=== PATIENT | female | born 1955 | race American Indian/Alaskan Native ===

== ENCOUNTER 2017-02-10 10:53 | Outpatient (CLI) | payer BC ==
--- NOTE | 2017-02-10 14:22 | Mammography Report ---
BILATERAL MAMMOGRAM: FINDINGS: There are scattered fibroglandular densities (approximately 25%-50% glandular). No mass, distortion, suspicious calcification, or skin change is seen. No significant change when compared to prior exams in 2015. CAD was utilized. IMPRESSION: Negative mammogram. There is no mammographic evidence of malignancy. RECOMMENDATION: Follow-up per ACS guidelines. BI-RADS CATEGORY: 1 = Negative ACR BI-RADS MAMMOGRAPHIC CODES: 0 = Needs additional imaging evaluation; 1 = Negative; 2 = Benign; 3 = Probably benign; 4 = Suspicious; 5 = Malignant; 6 = Known biopsy-proven malignancy COMMENT: 1. Dense breast tissue, i.e., adenosis, fibrocystic changes, etc., may obscure an underlying neoplasm. 2. Approximately 10% of cancers are not detected with mammography. 3. A negative mammography report should not delay biopsy if a clinically suspicious mass is present. COMMENT: Patient follow-up letters are generated in [employer].
== END 2017-02-10 10:54 | disposition home or self-care (01) ==
LOC: MAMMO 10:53
PROVIDERS: ATTEND Obstetrics & Gynecology
DX: Z12.31 Encounter for screening mammogram for malignant neoplasm of breast (principal)
CPT/HCPCS: 77067; G0202

== ENCOUNTER 2018-05-05 06:00 | Day surgery (SDC) | payer BC ==
[2018-05-05] MEDS ORDERED: TETRACAINE 0.5% OD PRN (06:22)
[2018-05-05] MEDS: AK-Dilate OD SCH ×3 (06:53→07:05)
[2018-05-05] MEDS: MYDRIACYL OD SCH ×3 (06:53→07:05)
[2018-05-05] MEDS: VIGAMOX OD SCH ×3 (06:54→07:05)
[2018-05-05] MEDS ORDERED: VERSED ONE (07:26)
--- NOTE | 2018-05-05 07:47 | Anesthesia Day of Surgery ---
Anesthesia Day of Surgery - Day of Surgery Patient Examined: Yes Patient H&P Reviewed: Yes Patient is NPO: Yes
--- NOTE | 2018-05-05 07:48 | Anesthesia Consultation ---
Anesthesia Consult and Med Hx Date of service: 05/05/18 - Airway Anesthetic Teeth Evaluation: Good ROM Head & Neck: Adequate Mental/Hyoid Distance: Adequate Mallampati Class: Class I Intubation Access Assessment: Probably Good - Pulmonary Exam CTA: Yes - Cardiac Exam Cardiac Exam: RRR - Pre-Operative Health Status ASA Pre-Surgery Classification: ASA2 Proposed Anesthetic Plan: MAC - Cardiovascular System Hx Hypertension: Yes (mitral valve prolapse) Hx Coronary Artery Disease: No
[2018-05-05] MEDS ORDERED: PRED FORTE 1% ONE (08:06)
[2018-05-05] MEDS ORDERED: DIAMOX PO ONE (08:27)
[2018-05-05] MEDS ORDERED: PRED FORTE 1% OD SCH (08:35)
--- NOTE | 2018-05-05 11:32 | Operative Report ---
Operative Report Operative Report: PATIENT'S NAME: DATE OF : DATE OF SURGERY: 05/05/2018 PREOPERATIVE DIAGNOSIS: Cataract right eye POSTOPERATIVE DIAGNOSIS: Same OPERATIVE PROCEDURE: Phacoemulsification with intraocular lens implantation, right eye SURGEON: Monae Goff M.D. FLEXIBLE NANNY SURGEON: Moisés Lens: SA60WF 21.0 D ANESTHESIA: Monitored anesthesia care in combination with topical and intracameral anesthesia because of the established specific risk of reflux, arrhythmias, or anxiety attacks associated with ocular manipulation, as well as the difficulty of the bridge operator slip to manage such potentially catastrophic events while simultaneously attempting to complete the surgical procedure and was deemed necessary for the patient's safety to have an Commercial Finance Analyst present during the procedure whenever possible. An Commercial Finance Analyst was utilized to regulate the intravenous sedation of the patient so the patient was cooperative yet not asleep in order for the patient to successfully maintain fixation of the eye on the operating light of the microscope. COMPLICATIONS: No surgical complications No blood loss. ALLERGIES: Amoxicillin PROGNOSIS: Excellent INDICATIONS FOR SURGERY: The patient is undergoing surgery in the hopes of eliminating or improving these visual difficulties. PROCEDURE: After arriving at the surgery center, the patient was given topical anesthetic and dilating drops, as noted in the record. The patient was then taken into the operating room and given more anesthetic drops. The eyelids , lashes, and lid margins were scrubbed with Betadine solution, and the patient was draped. The Nurse Commercial Finance Analyst administered IV sedation and monitored the patient during the procedure. The eye was then fixated with a 0.12, and a stab incision was made in the peripheral clear cornea into the anterior chamber. This was made on my left side. Viscoelastic was next used to fill the anterior chamber. The eye was once again fixated with the 0.12 forceps and a keratome was used make an incision in clear cornea peripherally on my right hand side temporally. The capsule forceps were used to open the central anterior capsule and then make a continuous round capsulotomy. Hydrodissection was carried out utilizing a cannula and balanced salt solution to delineate the cortical material from the capsule and the nucleus from the cortical material. The phaco tip was introduced into the eye and used to remove the anterior cortical material in the area of the capsulotomy. Then the phaco tip was buried into the nucleus, and a chopping instrument was introduced into the eye and used to provide countertraction in the nucleus between this instrument and the phaco tip fracturing the nucleus. This procedure was repeated multiple times, providing multiple small segments of the lens, and then the phaco tip was used to remove each of these segments. An I/A tip was then used to remove the remaining cortex. The anterior chamber was refilled with viscoelastic. An one-piece, acrylic intraocular lens was then placed into an inserting cartridge. The tip of the inserting cartridge was introduced into the keratome incision and into the anterior chamber. The implant was gently advanced through the cartridge and into the eye, where it unfolded, and both haptics were placed in the capsular bag, where it centered nicely and appeared to be well fixated. After placement of the intraocular lens, the I~and~A handpiece was placed back into the eye and used to remove the viscoelastic, including viscoelastic that was behind the optic of the intraocular lens. The anterior chamber was then filled with balanced salt solution, and hydration of the wound was used to cause swelling of the wound and more appropriate watertight closure. When the wound was found to be firm, the patient was asked to comment on how bright the light was. If there was no light perception at all or if the light was substantially dimmer than during the rest of the surgery, the amount of fluid in the eye was decompressed to lower the intraocular pressure until the patient could see the bright light again. This was done to avoid any damage or decreased blood flow to the optic nerve. MEDICATIONS APPLIED AT END OF SURGERY: One drop of Pred Forte and Vigamox The patient was given a shield to wear at night and was instructed not to rub or push on the eye. DISCHARGE SUMMARY: The patient was released in stable condition. The patient and those with the patient were given a written sheet of postoperative instructions and counseling on any abnormal laboratory studies. The patient is to see us tomorrow for follow-up in the office and is to call immediately for any difficulties. Monae Goff M.D. Date
--- NOTE | 2018-05-05 11:33 | Short Stay Summary ---
Short Stay Documentation Date of service: 05/05/18 - History H&P: obtained from office - Allergies and Medications Current Medications: Allergies amoxicillin Allergy (Verified 12/14/14 14:55) Unknown amoxicillin trihydrate [From Augmentin] Allergy (Unverified 01/29/15 08:04) Headache Neuromuscular Blockers, Steroidal [Steroidal Neuromuscular Blockers] Allergy ( Unverified 01/29/15 08:03) Swelling potassium clavulanate [From Augmentin] Allergy (Unverified 01/29/15 08:04) Headache Home Medications Medication Instructions Recorded Confirmed Last Taken Type Hydrochlorothiazide 12.5 mg PO DAILY 05/05/18 05/05/18 05/05/18 05:00 History Active Medications Moxifloxacin HCl (Vigamox) 1 drops OD Q5MIN [facility] Stop: 05/07/18 07:01 Last Admin: 05/05/18 07:05 Dose: 1 drops Phenylephrine HCl (Ak-Dilate) 1 drops OD Q5MIN [facility] Stop: 05/07/18 07:01 Last Admin: 05/05/18 07:05 Dose: 1 drops Prednisolone Acetate (Pred Forte 1%) 1 drops OD QID MINDY Last Admin: 05/05/18 08:39 Dose: 1 drops Tetracaine HCl (Tetracaine 0.5%) 1 drops OD Q5M PRN PRN Reason: Anesthesia Last Admin: 05/05/18 06:53 Dose: 1 drops Tropicamide (Mydriacyl) 1 drops OD Q5MIN [facility] Stop: 05/07/18 07:01 Last Admin: 05/05/18 07:05 Dose: 1 drops - Brief post op/procedure progress note Date of procedure: 05/05/18 Pre-op diagnosis: right cataract Post-op diagnosis: same Procedure: Phacoemulsification with intraocular lens insertion Anesthesia: MAC, local Surgeon: FAN CULP Estimated blood loss: none Specimen disposition: to lab Condition: stable - Disposition Condition at discharge: Good Disposition: DC-01 TO HOME OR SELFCARE - Discharge Diagnoses (1) Nuclear sclerosis of right eye Status: Resolved Short Stay Discharge Plan Additional Instructions: FOLLOW SURGEON INSTRUCTION SHEETS. CALL FOR F/U APPT. Follow up with: VINCENT WALKER MD [Primary Care Provider] - 7 Days Forms: Outpatient Surgery DC Inst.
[2018-05-05 16:57] VITALS: BP 126/56
== END 2018-05-05 09:00 | disposition home or self-care (01) ==
LOC: OR 06:00
DX: H26.8 Other specified cataract (principal); I10 Essential (primary) hypertension; Z88.8 Allergy status to other drugs, medicaments and biological substances; Z88.1 Allergy status to other antibiotic agents
CPT/HCPCS: 66984; J2250; V2632

== ENCOUNTER 2018-05-19 09:13 | Day surgery (SDC) | payer BC ==
[~2018-05-19 09:13] MED LIST: TETRACAINE 0.5% OS PRN
--- NOTE | 2018-05-19 10:36 | Anesthesia Day of Surgery ---
Anesthesia Day of Surgery - Day of Surgery Patient Examined: Yes Patient H&P Reviewed: Yes Patient is NPO: Yes
--- NOTE | 2018-05-19 10:36 | Anesthesia Consultation ---
Anesthesia Consult and Med Hx Date of service: 05/19/18 - Airway Anesthetic Teeth Evaluation: Good ROM Head & Neck: Adequate Mental/Hyoid Distance: Adequate Mallampati Class: Class I Intubation Access Assessment: Good - Pulmonary Exam CTA: Yes - Cardiac Exam Cardiac Exam: RRR - Pre-Operative Health Status ASA Pre-Surgery Classification: ASA2 Proposed Anesthetic Plan: MAC - Cardiovascular System Hx Hypertension: Yes (6 MOS) Hx Coronary Artery Disease: No
[2018-05-19] MEDS: AK-Dilate OS SCH ×3 (10:40→10:51)
[2018-05-19] MEDS: MYDRIACYL OS SCH ×3 (10:40→10:52)
[2018-05-19] MEDS: VIGAMOX OS SCH ×3 (10:40→10:51)
[2018-05-19] MEDS ORDERED: VERSED ONE (11:02)
--- NOTE | 2018-05-19 11:29 | Operative Report ---
Operative Report Operative Report: PATIENT'S NAME: DATE OF : DATE OF SURGERY: 05/19/2018 PREOPERATIVE DIAGNOSIS: Cataract left eye POSTOPERATIVE DIAGNOSIS: Same OPERATIVE PROCEDURE: Phacoemulsification with intraocular lens implantation, left eye SURGEON: Monae Goff M.D. LEASES AND LAND SUPERVISOR SURGEON: Moisés Lens: [id number] 20.5 D ANESTHESIA: Monitored anesthesia care in combination with topical and intracameral anesthesia because of the established specific risk of reflux, arrhythmias, or anxiety attacks associated with ocular manipulation, as well as the difficulty of the logging shovel operator to manage such potentially catastrophic events while simultaneously attempting to complete the surgical procedure and was deemed necessary for the patient's safety to have an Aix Architect present during the procedure whenever possible. An Aix Architect was utilized to regulate the intravenous sedation of the patient so the patient was cooperative yet not asleep in order for the patient to successfully maintain fixation of the eye on the operating light of the microscope. COMPLICATIONS: No surgical complications No blood loss. ALLERGIES: Amoxicillin PROGNOSIS: Excellent INDICATIONS FOR SURGERY: The patient is undergoing surgery in the hopes of eliminating or improving these visual difficulties. PROCEDURE: After arriving at the surgery center, the patient was given topical anesthetic and dilating drops, as noted in the record. The patient was then taken into the operating room and given more anesthetic drops. The eyelids , lashes, and lid margins were scrubbed with Betadine solution, and the patient was draped. The Nurse Aix Architect administered IV sedation and monitored the patient during the procedure. The eye was then fixated with a 0.12, and a stab incision was made in the peripheral clear cornea into the anterior chamber. This was made on my left side. Viscoelastic was next used to fill the anterior chamber. The eye was once again fixated with the 0.12 forceps and a keratome was used make an incision in clear cornea peripherally on my right hand side temporally. The capsule forceps were used to open the central anterior capsule and then make a continuous round capsulotomy. Hydrodissection was carried out utilizing a cannula and balanced salt solution to delineate the cortical material from the capsule and the nucleus from the cortical material. The phaco tip was introduced into the eye and used to remove the anterior cortical material in the area of the capsulotomy. Then the phaco tip was buried into the nucleus, and a chopping instrument was introduced into the eye and used to provide countertraction in the nucleus between this instrument and the phaco tip fracturing the nucleus. This procedure was repeated multiple times, providing multiple small segments of the lens, and then the phaco tip was used to remove each of these segments. An I/A tip was then used to remove the remaining cortex. The anterior chamber was refilled with viscoelastic. An one-piece, acrylic intraocular lens was then placed into an inserting cartridge. The tip of the inserting cartridge was introduced into the keratome incision and into the anterior chamber. The implant was gently advanced through the cartridge and into the eye, where it unfolded, and both haptics were placed in the capsular bag, where it centered nicely and appeared to be well fixated. After placement of the intraocular lens, the I~and~A handpiece was placed back into the eye and used to remove the viscoelastic, including viscoelastic that was behind the optic of the intraocular lens. The anterior chamber was then filled with balanced salt solution, and hydration of the wound was used to cause swelling of the wound and more appropriate watertight closure. When the wound was found to be firm, the patient was asked to comment on how bright the light was. If there was no light perception at all or if the light was substantially dimmer than during the rest of the surgery, the amount of fluid in the eye was decompressed to lower the intraocular pressure until the patient could see the bright light again. This was done to avoid any damage or decreased blood flow to the optic nerve. MEDICATIONS APPLIED AT END OF SURGERY: One drop of Pred Forte and Vigamox The patient was given a shield to wear at night and was instructed not to rub or push on the eye. DISCHARGE SUMMARY: The patient was released in stable condition. The patient and those with the patient were given a written sheet of postoperative instructions and counseling on any abnormal laboratory studies. The patient is to see us tomorrow for follow-up in the office and is to call immediately for any difficulties. Monae Goff M.D. Date
--- NOTE | 2018-05-19 11:30 | Short Stay Summary ---
Short Stay Documentation Date of service: 05/19/18 - History H&P: obtained from office - Allergies and Medications Current Medications: Allergies amoxicillin Allergy (Verified 05/18/18 14:12) Unknown amoxicillin trihydrate [From Augmentin] Allergy (Verified 05/18/18 14:12) Headache Neuromuscular Blockers, Steroidal [Steroidal Neuromuscular Blockers] Allergy ( Verified 05/18/18 14:12) Swelling potassium clavulanate [From Augmentin] Allergy (Verified 05/18/18 14:12) Headache Home Medications Medication Instructions Recorded Confirmed Last Taken Type Hydrochlorothiazide 12.5 mg PO DAILY 05/05/18 05/19/18 05/19/18 07:00 History Active Medications Acetazolamide (Diamox) 500 mg PO ONCE ONE Stop: 05/19/18 11:28 Moxifloxacin HCl (Vigamox) 1 drops OS Q5MIN [facility] Stop: 05/19/18 23:59 Last Admin: 05/19/18 10:51 Dose: 1 drops Phenylephrine HCl (Ak-Dilate) 1 drops OS Q5MIN [facility] Stop: 05/19/18 23:59 Last Admin: 05/19/18 10:51 Dose: 1 drops Prednisolone Acetate (Pred Forte 1%) 1 drops OS QID M[facility]Y Tetracaine HCl (Tetracaine 0.5%) 1 drops OS Q5M PRN PRN Reason: Anesthesia Stop: 05/19/18 23:59 Last Admin: 05/19/18 10:40 Dose: 1 drops Tropicamide (Mydriacyl) 1 drops OS Q5MIN M[facility]Y Stop: 05/19/18 23:59 Last Admin: 05/19/18 10:52 Dose: 1 drops - Brief post op/procedure progress note Date of procedure: 05/19/18 Pre-op diagnosis: left cataract Post-op diagnosis: same Procedure: Phacoemulsification with intraocular lens insertion left eye Anesthesia: MAC, local Surgeon: FAN CULP Estimated blood loss: none Pathology: none Condition: stable - Disposition Condition at discharge: Good Disposition: DC-01 TO HOME OR SELFCARE - Discharge Diagnoses (1) Combined forms of age-related cataract of left eye Status: Resolved Short Stay Discharge Plan Follow up with: KATIANA WHEELER MD [Primary Care Provider] - 7 Days
[2018-05-19] MEDS ORDERED: PRED FORTE 1% ONE (11:56)
[2018-05-19 12:24] VITALS: BP 130/72
[2018-05-19] MEDS ORDERED: DIAMOX PO ONE (12:27)
[2018-05-19] MEDS ORDERED: PRED FORTE 1% OS SCH (14:00)
--- NOTE | 2018-05-19 16:16 | Post Anesthesia Evaluation ---
- Post Anesthesia Evaluation Patient Participated: Yes Airway Patent: Yes Stable Respiratory Function: Yes Nausea/Vomiting: No Temp > 96.8F: No Pain Manageable: Yes Adequeate Hydration: Yes Anesthesia Complications: No
== END 2018-05-19 12:20 | disposition home or self-care (01) ==
LOC: OR 09:13
DX: H25.812 Combined forms of age-related cataract, left eye (principal); I10 Essential (primary) hypertension; K21.9 Gastro-esophageal reflux disease without esophagitis; Z79.899 Other long term (current) drug therapy; Z88.1 Allergy status to other antibiotic agents; Z88.8 Allergy status to other drugs, medicaments and biological substances; Z98.41 Cataract extraction status, right eye; Z98.891 History of uterine scar from previous surgery
CPT/HCPCS: 66984; J2250; V2632

== ENCOUNTER 2019-07-21 07:08 | Outpatient (CLI) | payer BC ==
--- NOTE | 2019-07-25 12:01 | Mammography Report ---
DIGITAL SCREENING MAMMOGRAM WITH CAD, 07/21/2019 INDICATION: Routine screening mammography. TECHNIQUE: Digital bilateral 2D mammography was obtained in the craniocaudal and mediolateral obliq ue projections. This examination was interpreted with the benefit of Computer-Aided Detection analysi s. COMPARISON: 02/10/2017 FINDINGS: Breast Density: The breasts are heterogeneously dense, which may obscure small masses. There is no evidence of dominant mass, suspicious calcifications or architectural distortion in eithe r breast. IMPRESSION: No mammographic evidence of malignancy. Follow up recommendation: Routine yearly BI-RADS Category 1: Negative. A "normal" or negative report should not discourage follow up or biopsy of a clinically significant f inding. A written summary of these findings will be mailed to the patient. The patient will be entered into a mammography reporting system which will generate a reminder letter for the patient's next appointmen t at the appropriate interval. The [employer] recommends yearly mammograms starting at age 40 and continuing as l lis as a woman is in good health. Breast MRI is recommended for women with an approximate 20-25% or greater lifetime risk of breast cancer, including women with a strong family history of breast or ova noe cancer or who have been treated for Hodgkin's disease. Signer Name: Mark Anthony Stover MD Signed: 07/25/2019 11:57 AM Workstation Name: [id number]
== END 2019-07-21 07:09 | disposition home or self-care (01) ==
LOC: MAMMO 07:08
PROVIDERS: ATTEND Family Medicine
DX: Z12.31 Encounter for screening mammogram for malignant neoplasm of breast (principal); I10 Essential (primary) hypertension
CPT/HCPCS: 77067

== ENCOUNTER 2020-08-07 09:55 | Outpatient (CLI) | payer BC ==
--- NOTE | 2020-08-07 11:53 | Mammography Report ---
BILATERAL DIGITAL SCREENING MAMMOGRAM WITH CAD HISTORY: SCREENING MAMMO TECHNIQUE: Routine digital mammographic imaging performed. This examination was interpreted with stephane rosales benefit of Computer-aided Detection analysis. COMPARISON: 07/21/2019, 02/10/2017, 01/16/2015. FINDINGS: Breast Density: scattered fibroglandular appearance of the breast tissue. Digital CC and MLO views demonstrate no mammographic evidence of malignancy. IMPRESSION: No mammographic evidence of malignancy. If the clinical examination remains stable, recommend bilate ral mammogram in approximately one year. BIRADS 1: Negative. FURTHER INFORMATION: According to the [employer], yearly mammograms are recommend ed starting at age 40 and continuing as long as a woman is in good health. Clinical Breast Exams shou ld be part of a periodic health exam-about every 3 years for women in their 20s and 30s and every yea r for women 40 and over. Breast self exam is an option for women starting in their 20s. Any breast ch brook noted on a breast self exam should be reported promptly to the patient's healthcare provider. Br east MRI is recommended for women with an approximately 20-25% or greater lifetime risk of breast can cer, including women with a strong family history of breast or ovarian cancer and women who have been treated for Hodgkin's disease. A negative Mammography report should not discourage follow up or biopsy of a clinically significant f inding and/or abnormality. Dense breast tissue may obscure small neoplasms. The patient will be entered into a reminder system with a target due date for the next screening mamm ogram. Signer Name: hCris Alvarado MD Signed: 08/07/2020 11:48 AM Workstation Name: [id number]
== END 2020-08-07 09:56 | disposition home or self-care (01) ==
LOC: SPVWC 09:55
PROVIDERS: ATTEND Family Medicine
DX: Z12.31 Encounter for screening mammogram for malignant neoplasm of breast (principal)
CPT/HCPCS: 77067

== ENCOUNTER 2022-06-29 10:46 | Outpatient (CLI) | payer BC, MEDICARE ==
--- NOTE | 2022-06-30 08:47 | Mammography Report ---
DIGITAL SCREENING MAMMOGRAM WITH CAD, 06/29/2022 CLINICAL INFORMATION / INDICATION: Routine screening mammography. TECHNIQUE: Digital bilateral 2D mammography was obtained in the craniocaudal and mediolateral obliqu e projections. This examination was interpreted with the benefit of Computer-Aided Detection analysis . COMPARISON: 08/07/2020, 07/21/2019, 02/10/2017 FINDINGS: Breast Density: There are scattered areas of fibroglandular density. No dominant mass, suspicious calcifications, or architectural distortion in either breast. There has been no significant interval change. IMPRESSION: No mammographic evidence of malignancy. Follow up recommendation: Routine yearly screening mammogram. BI-RADS Category 1: NEGATIVE A "normal" or negative report should not discourage follow up or biopsy of a clinically significant f inding. A written summary of these findings will be mailed to the patient. The patient will be entered into a mammography reporting system which will generate a reminder letter for the patient's next appointmen t at the appropriate interval. The [employer] recommends yearly mammograms starting at age 40 and continuing as l lis as a woman is in good health. Breast MRI is recommended for women with an approximate 20-25% or greater lifetime risk of breast cancer, including women with a strong family history of breast or ova noe cancer or who have been treated for Hodgkin's disease. Signer Name: Anahy Holder MD Signed: 06/30/2022 8:43 AM Workstation Name: [id number]
== END 2022-06-29 10:47 | disposition home or self-care (01) ==
LOC: MAMMO 10:46
PROVIDERS: ATTEND Nurse Anesthetist, Certified Registered
DX: Z12.31 Encounter for screening mammogram for malignant neoplasm of breast (principal)
CPT/HCPCS: 77067